=== PATIENT | female | born 2000 | race Caucasian/White ===

== ENCOUNTER 2022-04-13 17:27 | Emergency (ER) | payer SELFPAY ==
[2022-04-13 17:54] LABS: Absolute Lymphocytes (CBC) 2.3 K/uL (0.7-4.9); Lymphocytes % 21.6 % (15.3-44.8); RBC Red Blood Cell Count 4.15 M/uL (3.86-4.86)
[2022-04-13 18:13] LABS: ALT/SGPT 25 U/L (12-78); AST/SGOT 16 U/L (15-37); Albumin 3.5 g/dL (3.4-5.0); Alkaline Phosphatase 87 U/L (45-117); BUN Blood Urea Nitrogen 17 mg/dL (7-18); Bicarbonate 23 mmol/L (21-32); Bilirubin Total 0.2 mg/dL (0.2-1.0); Creatine Phosphokinase 146 U/L (26-192); Glomerular Filtration Rate 63 ml/min (=/>90); Glucose Level 95 mg/dL (74-106); Protein, Total 7.4 g/dL (6.4-8.2); Sodium Level 139 mmol/L (136-145); Troponin High Sensitivity 4.4 pg/mL (<58.9)
[2022-04-13 18:17] LABS: CKMB Creatine Kinase MB < 1.0 ng/mL (1.0-3.6)
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
[2022-04-13 20:48] LABS: Urine Blood Negative (Negative); Urine Glucose Negative (Negative); Urine Protein Negative (Negative); Urine pH 5.5 (5.0-7.0)
[2022-04-13 21:11] VITALS: BP 115/72; O2SAT 98
== END 2022-04-13 21:07 | disposition home or self-care (01) ==
LOC: ER 17:27
DX: T67.5XXA Heat exhaustion, unspecified, initial encounter (principal)
CPT/HCPCS: 36415; 80053; 81003; 81025; 82550; 82553; 84484; 85025; 99283